=== PATIENT | male | born 1945 | race Asian ===

== ENCOUNTER → 2018-07-03 07:45 | Outpatient (CLI) | payer MEDICARE, OTHER, SELFPAY ==
--- NOTE | 2018-07-03 | DI.US.S_ITS ---
PROCEDURE: US ABD AORTA ANEURYSM SCREEN INDICATIONS: Nicotine dependence, unspecified, uncomplicated Pe TECHNIQUE: Real time scanning was performed of the aorta and iliac arteries, with image documentation. COMPARISON: None. FINDINGS: Aorta: Proximal aortic diameter measures 1.8 cm. Mid-aorta measures 2.0 cm. Distal aortic diameter is mildly aneurysmal with a maximal AP and transverse dimension of 3.0 x 2.9 cm over a craniocaudad length of 3.2 cm. Iliac arteries: Right common iliac artery measures 1.1 cm. Left common iliac artery measures 1.1 cm. IMPRESSION: Mild aneurysmal dilatation of the distal abdominal aorta with a maximal AP and transverse dimension of 3.0 x 2.9 cm over a craniocaudad fusiform length of 3.2 cm. Elsewhere the aorta and iliac arteries are normal in caliber. Dictated by: Peng Tatum M.D. on 07/03/2018 at 9:17 Approved by: Peng Tatum M.D. on 07/03/2018 at 9:18
--- NOTE | 2018-07-03 | DI.US.S_ITS ---
PROCEDURE: US ARTERIAL DUPLEX LE BI INDICATIONS: Nicotine dependence, unspecified, uncomplicated Pe TECHNIQUE: Color and pulse Doppler interrogation was performed of both lower extremity arterial systems, with image documentation. COMPARISON: None. FINDINGS: Right lower extremity: Common femoral artery: 96 cm/sec, with triphasic flow. Deep femoral artery: 75 cm/sec, with biphasic flow. Proximal superficial femoral artery: 87 cm/sec, with triphasic flow. Mid superficial femoral artery: 72 cm/sec, with biphasic flow. Distal superficial femoral artery: 109 cm/sec, with biphasic flow. Popliteal artery: 115 cm/sec, with biphasic flow. Posterior tibial artery: 63 cm/sec, with biphasic flow. Anterior tibial artery/dorsalis pedis: 81 cm/sec, with biphasic flow. Crenshaw-scale imaging description: Mild soft plaque Left lower extremity: Common femoral artery: 99 cm/sec, with triphasic flow. Deep femoral artery: 86 cm/sec, with biphasic flow. Proximal superficial femoral artery: 90 cm/sec, with biphasic flow. Mid superficial femoral artery: 88 cm/sec, with biphasic flow. Distal superficial femoral artery: 115 cm/sec, with biphasic flow. Popliteal artery: 67 cm/sec, with biphasic flow. Posterior tibial artery: 39 cm/sec, with biphasic flow. Anterior tibial artery/dorsalis pedis: 70 cm/sec, with biphasic flow. Crenshaw-scale imaging description: Mild soft plaque IMPRESSION: Mild soft plaque bilaterally over the lower extremity arterial vasculature, no arterial insufficiency or significant stenosis found. Dictated by: Peng Tatum M.D. on 07/03/2018 at 13:44 Approved by: Peng Tatum M.D. on 07/03/2018 at 13:46
== END ==
PROVIDERS: PCP Family Medicine; Visit Provider Family Medicine
DX: Z13.6 Encounter for screening for cardiovascular disorders (principal); I71.4 Abdominal aortic aneurysm, without rupture; I73.9 Peripheral vascular disease, unspecified; F17.200 Nicotine dependence, unspecified, uncomplicated
CPT/HCPCS: 76706; 93925

== ENCOUNTER 2020-09-27 18:43 | Emergency (ER) | payer MEDICARE, OTHER, SELFPAY ==
[2020-09-27] VITALS (59 sets, daily range): BP systolic 88–139; BP diastolic 51–82; PULSE 104–125; RESP 13–33; TEMP 36.9; O2SAT 91–100
--- NOTE | 2020-09-27 19:16 | ED_ITS ---
HPI - Weakness General Chief complaint: Shortness of Breath/Dyspnea Stated complaint: WEAKNESS Time Seen by Provider: 09/27/20 18:49 Source: patient and family Mode of arrival: Wheelchair Limitations: no limitations History of Present Illness HPI Narrative: 74-year-old male nonsmoker with history of lung cancer, type 2 diabetes, hypertension, hyperlipidemia, AFib on Xarelto presents with his in the chief complaint of 2-3 weeks of gradually worsening fatigue, exertional dyspnea and generalized weaknness. He denies any dizziness or lightheadedness but has become increasingly weak. He denies any fever or chills nor nausea, vomiting or diarrhea. He states he has had increasing difficulty producing urine but denies any dysuria, frequency or urgency. He denies any recent falls or trauma. He denies any dietary or medication change, but admits to a generally poor appetite. 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 He is FULL CODE. He lives on [facility] with his . MD Complaint: generalized weakness Onset (ago): week(s) Duration: constant Location: generalized Related Data Home Medications Medication Instructions Recorded Confirmed colchicine 0.6 mg PO DAILY 09/27/20 09/27/20 hydrocodone-acetaminophen [[place]] 1 tab PO PRN PRN 09/27/20 09/27/20 metformin 500 mg PO BID 09/27/20 09/27/20 metoprolol succinate 100 mg PO DAILY 09/27/20 09/27/20 nortriptyline 25 mg PO BEDTIME 09/27/20 09/27/20 omeprazole 20 mg PO PRN PRN 09/27/20 09/27/20 rivaroxaban [Xarelto] 20 mg PO DAILY 09/27/20 09/27/20 zolpidem [Ambien] 10 mg PRN 09/27/20 Allergies Allergy/AdvReac Type Severity Reaction Status Date / Time adhesive tape Allergy Verified 09/27/20 22:03 aspirin Allergy Verified 09/27/20 22:03 NSAIDS (Non-Steroidal Allergy Verified 09/27/20 22:03 Anti-Inflamma shellfish derived Allergy Verified 09/27/20 22:03 Review of Systems Constitutional Constitutional: Denies chills, Reports fatigue, Denies fever(s), Denies frequent falls, Reports lethargy and Reports weakness Eyes Eyes: Denies change in vision, Denies eye discharge, Denies irritation and Denies loss of vision ENT Ears, Nose, Mouth, and Throat: Denies change in voice, Denies dizziness, Denies neck pain, Denies sore throat and Denies throat swelling Cardiovascular Cardiovascular: Denies chest pain, Reports irregular heart rhythm, Denies lightheadedness, Reports palpitations, Reports dyspnea, Reports dyspnea on exertion and Denies orthopnea Respiratory Respiratory: Denies cough, Reports dyspnea, Reports dyspnea on exertion and Denies wheezing Gastrointestinal Gastrointestinal: Denies abdominal pain, Denies change in bowel habits, Denies diarrhea, Denies nausea and Denies vomiting Musculoskeletal Musculoskeletal: Denies neck pain and Denies numbness Integumentary/Breasts Skin/Breast: Denies pruritus, Denies erythema, Denies rash and Denies wounds Neurologic Neurologic: Denies behavioral changes, Denies confusion, Denies dizziness, Denies frequent falls, Denies loss of vision, Denies numbness and Reports weakness Psychiatric Psychiatric: Denies anxiety, Denies behavioral changes, Denies confusion, Denies depression, Denies homicidal ideation and Denies suicidal ideation Endocrine Endocrine: Reports fatigue, Denies flushing and Reports palpitations Hematologic/Lymphatic Hematologic/Lymphatic: Denies easy bruising Allergic/Immunologic Allergic/Immunologic: Denies urticaria, Denies throat swelling and Denies wheezing Patient History Medical History (Updated 09/28/20 @ 02:36 by Joselito Wells DO) Diabetes mellitus GERD (gastroesophageal reflux disease) Lung cancer Social History Smoking Status: Never smoker Smoking Status: Never smoker Substance Use Type: does not use Exam Narrative Exam Narrative: GENERAL: [74] year old patient appears stated age. Very ill- appearing, short of breath, diaphoretic, pale HEAD: Atraumatic. Normocephalic. EYES: Pupils equal round and reactive. Extraocular motions intact. No scleral icterus. No injection or drainage. ENT: Dry mucous membranes. Nose without bleeding, purulent drainage. Throat without erythema, tonsillar hypertrophy or exudate. Airway patent. NECK: Trachea midline. Non tender, JVD noted CARDIOVASCULAR: Tachycardic and irregular without murmurs, gallops, or rubs. RESPIRATORY: Increased work of breathing with exertion, crackels in B/L bases GASTROINTESTINAL: Abdomen soft, non-tender, nondistended. EXTREMITIES: No edema or joint tenderness. BACK: Nontender without deformity or crepitance. No flank tenderness. NEURO: AOx3. 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/PCR) Stat 09/27/20 19:50 Blood Culture Stat 09/27/20 20:12 CT chest abd pel w con Stat 09/27/20 21:04 Comprehensive Metabolic Panel Stat Lactate (Lactic Acid) Stat NT-proBNP (BNP-Adult 18+) Stat Troponin & CK Cardiac Panel Stat 09/27/20 21:33 Urine Microscopic Stat 09/27/20 23:47 D Dimer Stat Partial Thromboplastin Time Stat Prothrombin Time INR Stat 09/28/20 EKG-12 Lead Stat 09/28/20 00:15 Complete Blood Count AUTO DIFF Stat Comprehensive Metabolic Panel Stat Troponin & CK Cardiac Panel Stat 09/28/20 00:41 US abdomen limited Stat 09/28/20 01:59 Fresh Frozen Plasma Stat Sodium Chloride (Normal Saline 0.9%) 2,160 mls @ 720 mls/hr 30 ml/kg infuse over 3 hr (2160 ml) IV NOW ONE Stop: 09/28/20 02:46 Discontinued Medications Fentanyl (Fentanyl 100 Mcg/2 Ml Inj) 50 mcg IV NOW ONE Stop: 09/27/20 23:12 Last Admin: 09/27/20 23:21 Dose: 50 mcg Documented by: MIQUEL Furosemide (Furosemide 40 Mg/4 Ml Vial) 40 mg IV NOW ONE Stop: 09/28/20 00:42 Last Admin: 09/28/20 01:16 Dose: 40 mg Documented by: Sodium Chloride (Normal Saline 0.9%) 1,000 mls @ 1,000 mls/hr IV BOLUS ONE Stop: 09/27/20 20:34 Last Infusion: 09/27/20 20:50 Dose: 0 mls/hr Documented by: Admin: 09/27/20 19:39 Dose: 1,000 mls/hr Documented by: MARIKA Piperacillin/Tazobactam/Dextrose (Zosyn) 3.375 gm in 50 mls @ 100 mls/hr IV NOW ONE Stop: 09/28/20 00:18 Last Admin: 09/28/20 00:30 Dose: 100 mls/hr Documented by: ANTONY Metoclopramide HCl (Metoclopramide 10 Mg/2 Ml Inj) 10 mg IV NOW ONE Stop: 09/27/20 18:58 Last Admin: 09/27/20 19:18 Dose: 10 mg Documented by: BETZAIDA Vital Signs Vital signs: Vital Signs - 8 hr 09/27/20 18:57 09/27/20 19:26 09/27/20 19:30 Temperature 98.4 F Pulse Rate 119 H 121 H 124 H Respiratory Rate 22 17 18 Blood Pressure 88/54 L Pulse Oximetry 97 99 95 09/27/20 19:35 09/27/20 19:39 09/27/20 19:40 Temperature Pulse Rate 124 H 121 H 125 H Respiratory Rate 17 19 17 Blood Pressure 106/70 Pulse Oximetry 96 96 95 09/27/20 19:45 09/27/20 19:50 09/27/20 19:55 Temperature Pulse Rate 123 H 124 H 121 H Respiratory Rate 17 17 17 Blood Pressure 104/54 L Pulse Oximetry 95 93 98 09/27/20 20:00 09/27/20 20:05 09/27/20 20:10 Temperature Pulse Rate 119 H 122 H 116 H Respiratory Rate 16 15 15 Blood Pressure 119/67 Pulse Oximetry 98 98 98 09/27/20 20:15 09/27/20 20:20 09/27/20 20:25 Temperature Pulse Rate 111 H 115 H 118 H Respiratory Rate 14 15 14 Blood Pressure Pulse Oximetry 98 98 97 09/27/20 20:28 09/27/20 20:30 09/27/20 20:35 Temperature Pulse Rate 114 H 110 H 108 H Respiratory Rate 14 14 14 Blood Pressure 139/71 115/57 L Pulse Oximetry 97 98 98 09/27/20 20:40 09/27/20 20:45 09/27/20 20:46 Temperature Pulse Rate 111 H 116 H 110 H Respiratory Rate 17 18 15 Blood Pressure 109/82 Pulse Oximetry 95 97 94 09/27/20 20:50 09/27/20 20:55 09/27/20 21:00 Temperature Pulse Rate 121 H 123 H 118 H Respiratory Rate 17 17 16 Blood Pressure Pulse Oximetry 97 96 96 09/27/20 21:05 09/27/20 21:10 09/27/20 21:15 Temperature Pulse Rate 122 H 123 H 114 H Respiratory Rate 18 16 15 Blood Pressure Pulse Oximetry 94 94 95 09/27/20 21:20 09/27/20 21:25 09/27/20 21:30 Temperature Pulse Rate 120 H 124 H 121 H Respiratory Rate 17 19 19 Blood Pressure 111/75 Pulse Oximetry 95 92 92 09/27/20 21:35 09/27/20 21:40 09/27/20 21:45 Temperature Pulse Rate 116 H 120 H 117 H Respiratory Rate 16 16 16 Blood Pressure 104/78 Pulse Oximetry 95 94 96 09/27/20 21:50 09/27/20 21:55 09/27/20 22:00 Temperature Pulse Rate 119 H 117 H 115 H Respiratory Rate 19 17 18 Blood Pressure 110/76 Pulse Oximetry 96 95 94 09/27/20 22:05 09/27/20 22:10 09/27/20 22:15 Temperature Pulse Rate 113 H 115 H 116 H Respiratory Rate 17 23 33 H Blood Pressure Pulse Oximetry 96 94 100 09/27/20 22:20 09/27/20 22:25 09/27/20 22:30 Temperature Pulse Rate 123 H 122 H 120 H Respiratory Rate 32 H 17 17 Blood Pressure Pulse Oximetry 93 97 09/27/20 22:35 09/27/20 22:40 09/27/20 22:45 Temperature Pulse Rate 109 H 104 H 123 H Respiratory Rate 16 15 17 Blood Pressure 120/51 L Pulse Oximetry 96 94 09/27/20 22:50 09/27/20 22:55 09/27/20 23:00 Temperature Pulse Rate 117 H 107 H 107 H Respiratory Rate 16 16 16 Blood Pressure 132/66 Pulse Oximetry 96 95 96 09/27/20 23:05 09/27/20 23:10 09/27/20 23:15 Temperature Pulse Rate 106 H 114 H 110 H Respiratory Rate 16 18 18 Blood Pressure Pulse Oximetry 96 98 97 09/27/20 23:20 09/27/20 23:25 09/27/20 23:30 Temperature Pulse Rate 104 H 110 H 113 H Respiratory Rate 17 14 13 Blood Pressure 105/73 Pulse Oximetry 97 96 96 09/27/20 23:35 09/27/20 23:40 09/27/20 23:45 Temperature Pulse Rate 109 H 117 H 106 H Respiratory Rate 14 19 17 Blood Pressure Pulse Oximetry 96 96 92 09/27/20 23:48 09/27/20 23:50 09/28/20 00:00 Temperature Pulse Rate 108 H 113 H Respiratory Rate 16 16 Blood Pressure 109/55 L 72/44 L Pulse Oximetry 91 91 09/28/20 00:01 09/28/20 00:05 09/28/20 00:08 Temperature Pulse Rate 107 H 106 H 113 H Respiratory Rate 15 17 20 Blood Pressure 64/44 L 119/69 Pulse Oximetry 93 97 95 09/28/20 00:10 09/28/20 00:15 09/28/20 00:20 Temperature Pulse Rate 114 H 105 H 106 H Respiratory Rate 19 16 14 Blood Pressure 121/57 L 98/67 105/60 Pulse Oximetry 100 95 94 09/28/20 00:25 09/28/20 00:26 09/28/20 00:30 Temperature Pulse Rate 107 H 108 H 105 H Respiratory Rate 16 16 15 Blood Pressure 118/56 L 129/62 Pulse Oximetry 93 95 95 09/28/20 00:35 09/28/20 00:40 09/28/20 00:45 Temperature Pulse Rate 104 H 99 H 106 H Respiratory Rate 14 13 13 Blood Pressure 120/68 115/64 105/63 Pulse Oximetry 97 98 97 09/28/20 00:50 09/28/20 00:55 09/28/20 01:00 Temperature Pulse Rate 102 H 101 H 102 H Respiratory Rate 13 13 14 Blood Pressure 127/65 111/56 L 103/71 Pulse Oximetry 95 95 95 09/28/20 01:05 09/28/20 01:10 09/28/20 01:15 Temperature Pulse Rate 106 H 99 H 93 H Respiratory Rate 16 14 15 Blood Pressure 109/51 L 101/50 L 107/78 Pulse Oximetry 95 94 96 09/28/20 01:20 09/28/20 01:25 09/28/20 01:30 Temperature Pulse Rate 102 H 99 H 102 H Respiratory Rate 15 15 15 Blood Pressure 132/90 131/73 110/78 Pulse Oximetry 97 96 99 09/28/20 01:35 09/28/20 01:40 09/28/20 01:45 Temperature Pulse Rate 103 H 101 H 98 H Respiratory Rate 14 14 14 Blood Pressure 122/69 126/69 Pulse Oximetry 97 98 97 09/28/20 01:50 09/28/20 01:55 Temperature Pulse Rate 96 H 100 H Respiratory Rate 19 18 Blood Pressure 111/58 L 119/67 Pulse Oximetry 98 97 MDM - Weakness Lab Data Result diagrams: 09/27/20 23:47 09/27/20 23:47 Labs: Lab Results 09/27/20 09/27/20 09/27/20 Range/Units 19:03 19:03 19:32 WBC 5.1 (4.5-11.0) X10^3/uL RBC 5.23 (4.5-5.9) X10^6/uL Hgb 14.2 (13.5-17.5) g/dL Hct 44.8 (41-53) % MCV 85.7 (80-100) fL MCH 27.1 (26-34) PG MCHC 31.7 (30-36) % RDW 18.5 H (11.6-14.8) % Plt Count 166 (150-400) X10^3/uL Neut % (Auto) Not Reportable Lymph % (Auto) Not Reportable [place] % (Auto) Not Reportable Eos % (Auto) Not Reportable Baso % (Auto) Not Reportable Lymph # (Auto) Not Reportable [place] # (Auto) Not Reportable Baso # (Auto) Not Reportable Total Counted 100 Seg Neutrophils % 47.0 (38-70) % Band Neutrophils % 13.0 H (3-7) % Lymphocytes % (Manual) 29.0 (25-45) % Atypical Lymphs % 1.0 H ( - 0) % Monocytes % (Manual) 7.0 (2-11) % Eosinophils % (Manual) 1.0 L (2-4) % Basophils % (Manual) 2.0 H (0-1) % Neutrophils # (Manual) 3060 (6295-9288) /uL Hypersegmented Neuts 1+ Plt Morphology Comment RBC Morphology See below Polychromasia Anisocytosis Macrocytosis 1+ H PT (10.1-12.7) SECONDS INR (0.9-1.3) APTT (26.4-36.2) SECONDS D-Dimer (<230) ng/mL Sodium (137-145) mmol/L Potassium (3.4-5.1) mmol/L Chloride (98-107) mmol/L Carbon Dioxide (22-32) mmol/L BUN (9-20) mg/dL Creatinine (0.66-1.25) mg/dL Estimated GFR (>60) mL/min BUN/Creatinine Ratio (6-22) Glucose (80-110) mg/dL Lactate (0.7-2.1) mmol/L Calcium (8.4-10.2) mg/dL Total Bilirubin (0.2-1.3) mg/dL AST (17-59) IU/L ALT (<50) IU/L Alkaline Phosphatase (38-126) U/L Total Creatine Kinase (55-170) U/L CK-MB (CK-2) CK-MB (CK-2) Rel Index Troponin I (0.01-0.034) ng/mL NT-Pro-B Natriuret Pep (<125) pg/mL Total Protein (6.3-8.2) g/dL Albumin (3.5-5.0) g/dL Globulin (1.7-4.1) g/dL Albumin/Globulin Ratio (1.0-2.8) Urine RBC (0-5/HPF) Urine WBC (0-5/HPF) Ur Squamous Epith Cells (0-5/HPF) Amorphous Sediment Urine Bacteria (None) Hyaline Casts (None) Ur Culture Indicated? Micro UA Comment SARS-CoV-2 (PCR) Negative (Negative) Blood Type A Positive Antibody Screen Negative 09/27/20 09/27/20 09/27/20 Range/Units 21:04 21:04 21:33 WBC (4.5-11.0) X10^3/uL RBC (4.5-5.9) X10^6/uL Hgb (13.5-17.5) g/dL Hct (41-53) % MCV (80-100) fL MCH (26-34) PG MCHC (30-36) % RDW (11.6-14.8) % Plt Count (150-400) X10^3/uL Neut % (Auto) Lymph % (Auto) [place] % (Auto) Eos % (Auto) Baso % (Auto) Lymph # (Auto) [place] # (Auto) Baso # (Auto) Total Counted Seg Neutrophils % (38-70) % Band Neutrophils % (3-7) % Lymphocytes % (Manual) (25-45) % Atypical Lymphs % ( - 0) % Monocytes % (Manual) (2-11) % Eosinophils % (Manual) (2-4) % Basophils % (Manual) (0-1) % Neutrophils # (Manual) (2888-0880) /uL Hypersegmented Neuts Plt Morphology Comment RBC Morphology Polychromasia Anisocytosis Macrocytosis PT (10.1-12.7) SECONDS INR (0.9-1.3) APTT (26.4-36.2) SECONDS D-Dimer (<230) ng/mL Sodium 132 L (137-145) mmol/L Potassium 6.9 H* (3.4-5.1) mmol/L Chloride 101 (98-107) mmol/L Carbon Dioxide 11 L (22-32) mmol/L BUN 38 H (9-20) mg/dL Creatinine 2.61 H (0.66-1.25) mg/dL Estimated GFR 24.2 L (>60) mL/min BUN/Creatinine Ratio 14.6 (6-22) Glucose 77 L (80-110) mg/dL Lactate 7.1 H* (0.7-2.1) mmol/L Calcium 8.8 (8.4-10.2) mg/dL Total Bilirubin 2.9 H (0.2-1.3) mg/dL AST 6608 H (17-59) IU/L ALT 1740 H (<50) IU/L Alkaline Phosphatase 136 H (38-126) U/L Total Creatine Kinase 276 H (55-170) U/L CK-MB (CK-2) QNS CK-MB (CK-2) Rel Index QNS Troponin I < 0.012 (0.01-0.034) ng/mL NT-Pro-B Natriuret Pep 60111 H (<125) pg/mL Total Protein 8.0 (6.3-8.2) g/dL Albumin 3.6 (3.5-5.0) g/dL Globulin 4.4 H (1.7-4.1) g/dL Albumin/Globulin Ratio 0.8 L (1.0-2.8) Urine RBC None seen (0-5/HPF) Urine WBC 0-1/hpf (0-5/HPF) Ur Squamous Epith Cells 0-1 /hpf (0-5/HPF) Amorphous Sediment 1+ Urine Bacteria Moderate (10-30) H (None) Hyaline Casts 5-10/lpf (None) Ur Culture Indicated? Cult not indicated Micro UA Comment . SARS-CoV-2 (PCR) (Negative) Blood Type Antibody Screen 09/27/20 09/27/20 09/27/20 Range/Units 23:47 23:47 23:47 WBC (4.5-11.0) X10^3/uL RBC (4.5-5.9) X10^6/uL Hgb (13.5-17.5) g/dL Hct (41-53) % MCV (80-100) fL MCH (26-34) PG MCHC (30-36) % RDW (11.6-14.8) % Plt Count (150-400) X10^3/uL Neut % (Auto) Lymph % (Auto) [place] % (Auto) Eos % (Auto) Baso % (Auto) Lymph # (Auto) [place] # (Auto) Baso # (Auto) Total Counted Seg Neutrophils % (38-70) % Band Neutrophils % (3-7) % Lymphocytes % (Manual) (25-45) % Atypical Lymphs % ( - 0) % Monocytes % (Manual) (2-11) % Eosinophils % (Manual) (2-4) % Basophils % (Manual) (0-1) % Neutrophils # (Manual) (6612-7317) /uL Hypersegmented Neuts Plt Morphology Comment RBC Morphology Polychromasia Anisocytosis Macrocytosis PT 164.0 H (10.1-12.7) SECONDS INR 14.6 H* (0.9-1.3) APTT 54 H (26.4-36.2) SECONDS D-Dimer 2141 H (<230) ng/mL Sodium (137-145) mmol/L Potassium (3.4-5.1) mmol/L Chloride (98-107) mmol/L Carbon Dioxide (22-32) mmol/L BUN (9-20) mg/dL Creatinine (0.66-1.25) mg/dL Estimated GFR (>60) mL/min BUN/Creatinine Ratio (6-22) Glucose (80-110) mg/dL Lactate 5.9 H* (0.7-2.1) mmol/L Calcium (8.4-10.2) mg/dL Total Bilirubin (0.2-1.3) mg/dL AST (17-59) IU/L ALT (<50) IU/L Alkaline Phosphatase (38-126) U/L Total Creatine Kinase (55-170) U/L CK-MB (CK-2) CK-MB (CK-2) Rel Index Troponin I (0.01-0.034) ng/mL NT-Pro-B Natriuret Pep (<125) pg/mL Total Protein (6.3-8.2) g/dL Albumin (3.5-5.0) g/dL Globulin (1.7-4.1) g/dL Albumin/Globulin Ratio (1.0-2.8) Urine RBC (0-5/HPF) Urine WBC (0-5/HPF) Ur Squamous Epith Cells (0-5/HPF) Amorphous Sediment Urine Bacteria (None) Hyaline Casts (None) Ur Culture Indicated? Micro UA Comment SARS-CoV-2 (PCR) (Negative) Blood Type Antibody Screen 09/27/20 09/27/20 Range/Units 23:47 23:47 WBC 5.7 (4.5-11.0) X10^3/uL RBC 4.96 (4.5-5.9) X10^6/uL Hgb 13.4 L (13.5-17.5) g/dL Hct 42.2 (41-53) % MCV 85.0 (80-100) fL MCH 27.0 (26-34) PG MCHC 31.7 (30-36) % RDW 18.8 H (11.6-14.8) % Plt Count 159 (150-400) X10^3/uL Neut % (Auto) Not Reportable Lymph % (Auto) Not Reportable [place] % (Auto) Not Reportable Eos % (Auto) Not Reportable Baso % (Auto) Not Reportable Lymph # (Auto) Not Reportable [place] # (Auto) Not Reportable Baso # (Auto) Not Reportable Total Counted 100 Seg Neutrophils % 54.0 (38-70) % Band Neutrophils % 11.0 H (3-7) % Lymphocytes % (Manual) 27.0 (25-45) % Atypical Lymphs % ( - 0) % Monocytes % (Manual) 7.0 (2-11) % Eosinophils % (Manual) 1.0 L (2-4) % Basophils % (Manual) (0-1) % Neutrophils # (Manual) 3705 (8605-2718) /uL Hypersegmented Neuts Plt Morphology Comment 2+ giant platelets RBC Morphology See below Polychromasia 1+ H Anisocytosis 1+ H Macrocytosis 1+ H PT (10.1-12.7) SECONDS INR (0.9-1.3) APTT (26.4-36.2) SECONDS D-Dimer (<230) ng/mL Sodium 133 L (137-145) mmol/L Potassium 5.9 H (3.4-5.1) mmol/L Chloride 103 (98-107) mmol/L Carbon Dioxide 13 L (22-32) mmol/L BUN 42 H (9-20) mg/dL Creatinine 2.90 H (0.66-1.25) mg/dL Estimated GFR 21.4 L (>60) mL/min BUN/Creatinine Ratio 14.5 (6-22) Glucose 81 (80-110) mg/dL Lactate (0.7-2.1) mmol/L Calcium 8.5 (8.4-10.2) mg/dL Total Bilirubin 2.7 H (0.2-1.3) mg/dL AST 5338 H (17-59) IU/L ALT 1600 H (<50) IU/L Alkaline Phosphatase 113 (38-126) U/L Total Creatine Kinase 249 H (55-170) U/L CK-MB (CK-2) 6.51 H CK-MB (CK-2) Rel Index 2.6 Troponin I 0.127 H* (0.01-0.034) ng/mL NT-Pro-B Natriuret Pep (<125) pg/mL Total Protein 7.1 (6.3-8.2) g/dL Albumin 3.0 L (3.5-5.0) g/dL Globulin 4.1 (1.7-4.1) g/dL Albumin/Globulin Ratio 0.7 L (1.0-2.8) Urine RBC (0-5/HPF) Urine WBC (0-5/HPF) Ur Squamous Epith Cells (0-5/HPF) Amorphous Sediment Urine Bacteria (None) Hyaline Casts (None) Ur Culture Indicated? Micro UA Comment SARS-CoV-2 (PCR) (Negative) Blood Type Antibody Screen Urine Dip Bedside Urine Glucose Negative Bedside Urine Bilirubin + 1 Bedside Urine Ketone - Negative Urine Specific [place] 1.030 Bedside Urine Occult Blood +/- Bedside Urine pH 6.0 Bedside Urine Protein +++ 300 Bedside Urine Urobilinogen - Negative Bedside Urine Nitrite - Negative Bedside Urine Leukocytes - Negative Esterase Imaging Data US - abdomen: Radiologist Impression: Thick Walled GB with sludge CT scan - chest: Radiologist Impression: 1. Indeterminate anterior mediastinal mass. This could be benign or malignant 2. Small right and minimal left pleural effusions. Associated scattered reticular opacities in the lungs located mostly dependently, could be infectious or inflammatory 3. Minimal portal venous gas in the left anterior liver. Nonspecific, no bowel abnormality ECG Data Attestation: I personally reviewed and interpreted this ECG as follows: Interpretation: Rapid atrial fibrillation, rate 110, no ST depressions, elevations or other obvious ectopy MDM Narrative Medical decision making narrative: Significantly ill patient with complex and unclear etiology. Elements of story and exam are consistent with dehydration including dry mucous membranes, poor skin turgor, acute kidney injury and minimal urine output. Also, patient has history and physical exam findings consistent with fluid overload including exertional dyspnea, crackles in bilateral bases, bilateral pleural effusions, critically elevated BP and P and bilateral JVD. Patient meets criteria for severe sepsis given initial blood pressure below 90, tachycardia, elevated respiratory rate, concern for underlying infection as well as critically elevated lactate. There have been significant delays in the evaluation stabilization of this patient due to trouble obtaining blood as well as IV access. Patient does have acute kidney injury and hyperkalemia but no EKG changes, he has been given significant fluids and Lasix and potassium has improved to 5.9. Lactate has improved some, but over duration of visit his troponin has increased. Multiple EKGs do not dem onstrate any suggestion of an occlusive event. Due to patient's use of Xarelto and critically elevated INR no heparin is given, given acute heart failure and episodes of hypotension beta-blockers are held. Vital signs have improved over the duration of the visit but he is significantly ill with potential for rapid deterioration. I have been in contact with the intensive care at [facility] and we are thankful further involvement, recommendations and willingness to help care for this individual. Ground transport suggested a weight of at least 2-3 hours, as a result [facility] was activated. Patient and his understand and agree with the plan. understands that there is a no visitor policy at [facility]. All images have been pushed. Transport paperwork includes our medical record as well as those obtained from the visit to [facility] in April Critical Care Time Critical Care Time Critical Care Time: Yes Total Critical Care Time: 45 Attestation: The high probability of a clinically significant, sudden or life threatening deterioration of the [CV] system(s) required my full and direct attention, intervention and personal management. The aggregate critical care time was [45] minutes. This time is in addition to time spent performing reported procedures but includes the following: [x] Data Review and interpretation [x Patient assessment and monitoring of vital signs [x] Documentation [x] Medication orders and management Discharge Plan Departure Patient Disposition: [facility] Clinical Impression: Acute kidney injury, Elevated transaminase level, Acute hyperkalemia, Sepsis, Acute cholecystitis, Supratherapeutic INR Prescriptions: No Action metformin 500 mg Tablet 500 mg PO BID RF: 0 hydrocodone-acetaminophen [[place]] 10-325 mg Tablet 1 tab PO PRN PRN (Reason: Pain, Severe) RF: 0 colchicine 0.6 mg Tablet 0.6 mg PO DAILY RF: 0 metoprolol succinate 100 mg Tablet Extended Release 24 Hr 100 mg PO DAILY RF: 0 nortriptyline 25 mg Capsule 25 mg PO BEDTIME RF: 0 omeprazole 20 mg Capsule,Delayed Release(Dr/Ec) 20 mg PO PRN PRN (Reason: Acid Reflux) RF: 0 Xarelto 20 mg Tablet 20 mg PO DAILY RF: 0 zolpidem [Ambien] 10 mg Tablet 10 mg PRN (Reason: Sleep) RF: 0 Referrals: Blanca Ramsey, [Primary Care Provider] -
[2020-09-27] MEDS: METOCLOPRAMIDE 10 MG/2 ML INJ IV (19:18)
[2020-09-27 19:22] LABS: Hematocrit 44.8 % (41-53); Hemoglobin 14.2 g/dL (13.5-17.5); Mean Corpuscular HGB Conc 31.7 % (30-36); Mean Corpuscular Hemoglobin 27.1 PG (26-34); Mean Corpuscular Volume 85.7 fL (80-100); Platelet Count 166 X10^3/uL (150-400); Red Blood Cell Count 5.23 X10^6/uL (4.5-5.9); Red Cell Distribution Width 18.5 % (11.6-14.8); White Blood Cell Count 5.1 X10^3/uL (4.5-11.0)
[2020-09-27 19:23] LABS: Add Manual Diff / Slide Review YES
[2020-09-27] MEDS: SODIUM CHLORIDE 0.9% 1,000 ML 1000 ML IV (19:39)
[2020-09-27 19:58] LABS: Neutrophils Absolute Manual 3060 /uL (3000-5900); Total Cells Counted 100
[2020-09-27 19:59] LABS: Hypersegmented Neutrophils 1+; Macrocytosis 1+
--- NOTE | 2020-09-27 20:12 | DI.CT.S_ITS ---
PROCEDURE: CT CHEST ABD PEL WO CON INDICATIONS: sepsis, possible bleeding, hypotension TECHNIQUE: After the administration of oral contrast, 5 mm thick sections acquired from the lung apices to the symphysis pubis. 5 mm thick coronal and sagittal reformats acquired, with additional 7 mm coronal MIP reformats through the lungs. For radiation dose reduction, the following was used: automated exposure control, adjustment of mA and/or kV according to patient size. COMPARISON: [facility], CT, CT PELVIS WITH CONTRAST, 04/16/2020, 21:31. FINDINGS: Image quality: Reduced by absence of both oral and intravenous contrast.. CHEST: Lungs and pleura: There are mild posterior bilateral right greater than left likely acute pulmonary opacities. Right greater than left pleural effusions and no pneumothorax. Central and peripheral airways are patent are normal in caliber. Mediastinum: Heart size is normal. No pericardial effusion. Note is made of a scant degree of gas within the anterior right ventricle, and pulmonary artery. This can occur during intravenous access. No mediastinal adenopathy by CT size criteria. Thoracic aorta and central pulmonary arteries are normal in size. Esophagus is normal in caliber. No hiatal hernia. 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 Prominent coronary artery calcifications are noted. There is a dense calcification within the subclavian artery at the superior thoracic inlet, on the right. Chest wall: No axillary or supraclavicular adenopathy by size criteria. Thyroid gland is not well seen by this noncontrast technique . ABDOMEN: Solid organs: Liver is normal in size. There is a slight degree of gas within a branching structure at the anterior liver margin, but without contrast it is not possible to definitively establish whether this is within a branching bile duct or portal vein. Gallbladder appears normal. Pancreas is normal in contours. Spleen is normal in size. No adrenal nodules. Both kidneys are normal in size, without hydronephrosis or nephrolithiasis. Peritoneum and bowel: Small and large bowel loops are normal in caliber and wall thickness. No free fluid or air. Nodes and vessels: No retroperitoneal or mesenteric adenopathy by size criteria. Aorta and inferior vena cava are normal in size. Miscellaneous: No ventral hernias. PELVIS: Genitourinary: Bladder wall thickness is normal. Miscellaneous: No inguinal hernias or adenopathy. At the distal abdominal aorta, previously visualized 04/16/20 there is a fully visualized aneurysm measuring up to 3 point 0 4 cm transverse and 4.1 cm AP. There is eccentric calcification along the posterior aspect of this structure, but uniformly absent along the anterior aspect of the aneurysm, with a pattern potentially representing a contained eccentric aneurysm which has created discontinuity in the calcification. Bones and soft tissues: No suspicious bony lesions. No vertebral body compression there is a right femoral vein catheter with a small amount of anterior gas immediately adjacent. fractures. IMPRESSION: 1. Complex constellation of findings, absence of oral and intravenous contrast reduces quality of visualization. Source of sepsis syndrome is not identified. 2. 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 Further workup when clinically appropriate is recommended. This could represent thymic malignancy or thymoma. 3. Prominent coronary artery calcifications, involving the right and left main coronary arteries, and a very dense relatively large calcification is seen within the right subclavian artery as it extends cephalad from the aortic arch, potentially producing significant stenosis. 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 4. There is a small amount of intravascular gas, right heart, involving the right ventricle and the anterior border of the pulmonary artery. Note is made of a right femoral vein catheter with a small amount of gas along its intraluminal extension, as likely cause of venous gas noted above. The amount of gas within the right heart is scant. 5. Anterior branching scant amount of gas within the left hepatic lobe. Etiology is uncertain but no gas within bowel wall is seen, and this could represent pneumobilia rather than portal venous gas. This is almost in perceptible, and throughout the visualized chest abdomen and pelvis a source of portal vein gas is not seen. 6. The clinical history indicates concern for whether on going hemorrhage could be present. No hematoma found. No suspicion for aneurysm leak. Dictated by: Peng Tatum M.D. on 09/28/2020 at 8:37 Approved by: Peng Tatum M.D. on 09/28/2020 at 9:00
[2020-09-27 20:49] LABS: COVID19 - ADMIT (NP swab/PCR) Negative (Negative)
[2020-09-27 21:45] LABS: RBC Urine None Seen (0-5/HPF)
[2020-09-27 22:14] LABS: CKMB % Relative Index QNS % (1.5-5.0); Creatine Kinase 276 U/L (55-170); Creatine Kinase MB QNS ng/mL (<2.37); NT-proBNP (BNP-Adult 18+) 16600 pg/mL (<125); Sodium 132 mmol/L (137-145); Troponin I < 0.012 ng/mL (0.01-0.034)
[2020-09-27 22:14] LABS: Amorphous Sediment Urine 1+; Bacteria Urine Moderate (10-30); Hyaline Casts Urine 5-10/LPF; Squamous Epithelial Cell Urine 0-1 /HPF (0-5/HPF); WBC Urine 0-1/HPF (0-5/HPF)
[2020-09-27 22:15] LABS: BUN Creatinine Ratio 14.6 (6-22); Blood Urea Nitrogen 38 mg/dL (9-20); Calcium 8.8 mg/dL (8.4-10.2); Carbon Dioxide 11 mmol/L (22-32); Chloride 101 mmol/L (98-107); Estimated Glomerular Filt Rate 24.2 mL/min (>60); Glucose 77 mg/dL (80-110)
[2020-09-27 22:16] LABS: Alanine Aminotransferase 1740 IU/L (<50); Albumin 3.6 g/dL (3.5-5.0); Albumin Globulin Ratio 0.8 (1.0-2.8); Alkaline Phosphatase 136 U/L (38-126); Aspartate Aminotransferase 6608 IU/L (17-59); Bilirubin Total 2.9 mg/dL (0.2-1.3); Globulin 4.4 g/dL (1.7-4.1); HEMOLYSIS 118 (0-50)
[2020-09-27 22:16] LABS: Culture Indicated Urine Cult Not Indicated
[2020-09-27 22:22] LABS: Potassium 6.9 mmol/L (3.4-5.1)
[2020-09-27 22:23] LABS: Lactate (Lactic Acid) 7.1 mmol/L (0.7-2.1)
[2020-09-27 23:09] LABS: Reflexed Lactate in 2 Hours Y
[2020-09-27] MEDS: fentaNYL 100 MCG/2 ML INJ 50 MCG IV (23:21)
[2020-09-27] MEDS: SODIUM CHLORIDE 0.9% 2,160 ML 720 ML IV (23:47)
[2020-09-28] VITALS (35 sets, daily range): BP systolic 64–132; BP diastolic 44–90; PULSE 93–114; RESP 13–20; O2SAT 92–100
[2020-09-28 00:08] LABS: PTT Partial Thromboplastin Tim 54 SECONDS (26.4-36.2)
[2020-09-28 00:10] LABS: Lactate 2HR (Lactic Acid Rflx) 5.9 mmol/L (0.7-2.1)
[2020-09-28 00:18] LABS: INR 14.6 (0.9-1.3)
[2020-09-28 00:19] LABS: D Dimer 2141 ng/mL (<230)
[2020-09-28] MEDS: PIPERACILLIN-TAZO 3.375 GM/50 ML FROZ.PIGGY IV (00:30)
[2020-09-28 00:32] LABS: Add Manual Diff / Slide Review YES; Hematocrit 42.2 % (41-53); Hemoglobin 13.4 g/dL (13.5-17.5); Mean Corpuscular HGB Conc 31.7 % (30-36); Platelet Count 159 X10^3/uL (150-400); Red Blood Cell Count 4.96 X10^6/uL (4.5-5.9); Red Cell Distribution Width 18.8 % (11.6-14.8); White Blood Cell Count 5.7 X10^3/uL (4.5-11.0)
[2020-09-28 00:35] LABS: Albumin Globulin Ratio 0.7 (1.0-2.8); Alkaline Phosphatase 113 U/L (38-126); BUN Creatinine Ratio 14.5 (6-22); Bilirubin Total 2.7 mg/dL (0.2-1.3); Blood Urea Nitrogen 42 mg/dL (9-20); Calcium 8.5 mg/dL (8.4-10.2); Carbon Dioxide 13 mmol/L (22-32); Chloride 103 mmol/L (98-107); Creatine Kinase 249 U/L (55-170); Estimated Glomerular Filt Rate 21.4 mL/min (>60); Globulin 4.1 g/dL (1.7-4.1); Glucose 81 mg/dL (80-110); HEMOLYSIS < 15 (0-50); Sodium 133 mmol/L (137-145); Total Protein 7.1 g/dL (6.3-8.2)
--- NOTE | 2020-09-28 00:41 | DI.US.S_ITS ---
PROCEDURE: US ABDOMEN LIMITED INDICATIONS: HYPERBILIRUBINEMIA, ELEVATED LFTS TECHNIQUE: Real-time focused scanning was performed of the abdomen, with image documentation. COMPARISON: [facility], CT, CT CHEST ABD PEL WO CON, 09/27/2020, 23:45. FINDINGS: Liver is normal in size and echotexture. Gallbladder contains sludge and the gallbladder wall is mildly thickened at 3.8 mm. There is no focal tenderness, however. Common duct is normal in caliber at 3.4 mm. Pancreas appears normal. Right-sided pleural effusion noted. This also was seen on CT scanning. IMPRESSION: Sludge within the gallbladder lumen, no sign of definite acute cholecystitis given absence of focal tenderness or pericholecystic free fluid abutting the gallbladder margin. The gallbladder wall thickening at 3.8 mm is above the upper limits of normal but this finding is relatively nonspecific in the setting of CHF or anasarca. Given the absence of abnormality indicative of acute cholecystitis on CT scanning the likelihood of infection involving the gallbladder is considered relatively low but has not been entirely excluded. Dictated by: Peng Tatum M.D. on 09/28/2020 at 9:00 Approved by: Peng Tatum M.D. on 09/28/2020 at 9:05
[2020-09-28 00:44] LABS: Alanine Aminotransferase 1600 IU/L (<50); Potassium 5.9 mmol/L (3.4-5.1)
[2020-09-28 00:51] LABS: CKMB % Relative Index 2.6 % (1.5-5.0); Creatine Kinase MB 6.51 ng/mL (<2.37)
[2020-09-28 01:00] LABS: Neutrophils Absolute Manual 3705 /uL (3000-5900); Total Cells Counted 100
[2020-09-28 01:01] LABS: Anisocytosis 1+; Platelet Morphology Comment 2+ GIANT PLATELETS; Polychromasia 1+
[2020-09-28 01:02] LABS: Macrocytosis 1+
[2020-09-28 01:03] LABS: Aspartate Aminotransferase 5338 IU/L (17-59)
[2020-09-28 01:04] LABS: Troponin I 0.127 ng/mL (0.01-0.034)
[2020-09-28] MEDS: FUROSEMIDE 40 MG/4 ML VIAL IV (01:16)
--- NOTE | 2020-09-28 02:03 | PC.NURSE ---
Small amount bloody drainage noted from R femoral central line. Dr Wells notified.
[2020-09-28] MEDS: SODIUM CHLORIDE 0.9% 1,000 ML 1000 ML IV (02:32)
--- NOTE | 2020-09-28 03:00 | PC.NURSE ---
FFP not able to scan certain parts, verified with second RN. FFP given to airlift crew to hang and run
== END 2020-09-28 03:24 | disposition short-term general hospital (02) ==
PROVIDERS: Emergency Provider Emergency Medicine; PCP Family Medicine
DX: K81.0 Acute cholecystitis (principal); A41.9 Sepsis, unspecified organism; R79.1 Abnormal coagulation profile; N17.9 Acute kidney failure, unspecified; R74.01 Elevation of levels of liver transaminase levels; E87.5 Hyperkalemia; Z20.822 Contact with and (suspected) exposure to COVID-19
CPT/HCPCS: 36415; 36430; 36573; 51701; 71260; 74177; 76705; 80053; 81003; 81015; 82550; 82553; 83605; 83880; 84484; 85007; 85025; 85379; 85610; 85730; 86850; 86900; 86901; 86927; 87040; 87635; 93005; 93010; 96361; 96365; 96375; 99285; 99291; 99292; C9803; P9016; J1940; J2543; J2765; J3010